=== PATIENT | male | born 1950 | race Caucasian/White ===

== ENCOUNTER 2017-05-11 08:21 | Day surgery (SDC) | payer BC ==
[2017-05-01 09:28] VITALS: BMI 23.0
[2017-05-11] MEDS ORDERED: Propofol 10 mg/ml Inj (20 ML) ONE (10:13)
[2017-05-11] MEDS ORDERED: Rocuronium 10 mg/ml (5 ml) ONE (10:14)
[2017-05-11] MEDS ORDERED: Lidocaine Hydrochloride 5 ML INJ ONE (10:14)
[2017-05-11] MEDS ORDERED: Bupivacaine 0.25% Inj(30mL) ONE (11:40)
[2017-05-11] MEDS ORDERED: ceFAZolin IV 2 gm in Dextrose 1 GM/50 ML BAG IVPB ONE (11:41)
[2017-05-11 12:36] VITALS: O2SAT 100
[2017-05-11] MEDS: HYDROmorphone 0.5 mg/0.5 ml ISec IVP PRN ×2 (12:45→13:00)
[2017-05-11] MEDS ORDERED: Lactated Ringer's 1,000 ML IV ONE (12:50)
[2017-05-11 14:51] VITALS: BP 130/72; PULSE 82; RESP 16; TEMP 97.4
--- NOTE | 2017-05-12 00:56 | OP ---
PROCEDURE DATE: 05/11/2017 PREOPERATIVE DIAGNOSIS: Incarcerated left inguinal hernia. POSTOPERATIVE DIAGNOSIS: Incarcerated left inguinal hernia. PROCEDURES PERFORMED: 1. Repair of incarcerated of left inguinal hernia with mesh (80295). 2. Repair of spermatic artery (32987). 3. Excision of 5 cm pelvic soft tissue tumor (38221). 4. Adjacent issue transfer closure greater than 20 sq cm (98242). HISTORY OF PRESENT ILLNESS: This is a 66-year-old male with a large left inguinal hernia discovered on CAT scan, who now presents for elective repair. DESCRIPTION OF PROCEDURE: The patient was taken to the operating room, general anesthesia was administered, and the left groin was prepped and draped. A standard left inguinal incision was made and carried down to the external oblique aponeurosis. Bleeding was controlled using a Bovie. The external oblique aponeurosis was opened, the spermatic cord was looped with [place] drain. There was a large incarcerated direct hernia noted and it was dissected free using the Bovie and inverted. this, a large 6 cm soft tissue tumor was accounted associated with the spermatic cord and it was dissected free and removed. Bleeding at this point was noted from the spermatic cord and then from bleeding spermatic blood vessel was repaired with 6-0 Prolene. Flow was documented with Doppler. An extra large ProLoop hernia plug was inserted into the hernia defect, sutured in placed with interrupted 2-0 Prolene sutures. The wound was irrigated with copious amounts of saline solution and the wound was closed in layers with heavy Monocryl. There was a large tissue defect noted and for this reason, an adjacent tissue and transfer closure was performed that widely mobilizing and using multiple layers of subcuticular Monocryl and skin clips. The patient tolerated the procedure well and returned to the recovery room in stable condition. Rickey Castano MD
== END 2017-05-11 15:15 | disposition home or self-care (01) ==
LOC: C.SDS 08:21
PROVIDERS: ATTEND Surgery
DX: K40.30 Unilateral inguinal hernia, with obstruction, without gangrene, not specified as recurrent (principal); D17.6 Benign lipomatous neoplasm of spermatic cord
CPT/HCPCS: 49507; 82948; 88304; C1781; J0690; J1170; J2405; J2704; J2765; J3010; J7120